=== PATIENT | female | born 1975 | race Caucasian/White ===

== ENCOUNTER 2017-01-25 14:42 | Outpatient (CLI) | payer MEDICAID ==
[2017-01-25 12:45] LABS: BASOPHILS # (AUTO) 0.1 10^3/uL (0.0-0.1); BASOPHILS % (AUTO) 0.8 %; EOSINOPHILS # (AUTO) 0.1 10^3/uL (0.0-0.7); EOSINOPHILS % (AUTO) 1.3 %; HCT - HEMATOCRIT 37.1 % (37.0-47.0); HGB - HEMOGLOBIN 12.5 g/dL (12.0-16.0); LYMPHOCYTES # (AUTO) 1.8 10^3/uL (1.5-3.5); LYMPHOCYTES % (AUTO) 27.2 %; MEAN CORPUSCULAR HEMOGLOBIN 30.3 pg (27.0-31.0); MEAN CORPUSCULAR HGB CONC 33.6 g/dL (32.0-36.0); MEAN CORPUSCULAR VOLUME 90.4 fL (81.0-99.0); MONOCYTES # (AUTO) 0.4 10^3/uL (0.0-1.0); MONOCYTES % (AUTO) 6.5 %; NEUTROPHILS # (AUTO) 4.3 10^3/uL (1.5-6.6); NEUTROPHILS % (AUTO) 64.2 %; RED CELL DISTRIBUTION WIDTH 13.1 % (12.0-15.0); UNCORRECTED WHITE BLOOD COUNT 6.7 x10^3/uL; WHITE BLOOD COUNT 6.7 x10^3/uL (4.8-10.8)
[2017-01-25 13:11] LABS: ALBUMIN/GLOBULIN RATIO 1.6 (1.0-2.2); BILIRUBIN,TOTAL 0.6 mg/dL (0.2-1.0); BUN - BLOOD UREA NITROGEN 8 mg/dL (6-20); CALCIUM 8.8 mg/dL (8.5-10.3); CARBON DIOXIDE - CO2 24 mmol/L (21-32); CHLORIDE 106 mmol/L (101-111); CHOL/HDL RATIO 2.7 (<4.4); CHOLESTEROL 226 mg/dL; CREATININE 0.6 mg/dL (0.4-1.0); GFR - MDRD 111 (>89); GLUCOSE 93 mg/dL (70-100); HDL CHOLESTEROL 84 mg/dL; LDL/HDL RATIO 1.5 (<4.4); POTASSIUM 3.7 mmol/L (3.5-5.0); SODIUM 137 mmol/L (135-145); TOTAL PROTEIN 6.6 g/dL (6.7-8.2); TRIGLYCERIDES 75 mg/dL; VLDL CHOLESTEROL 15 mg/dL
== END 2017-01-25 14:43 | disposition home or self-care (01) ==
LOC: LAB.N 14:42
PROVIDERS: ATTEND Nurse Practitioner Gerontology
DX: Z13.9 Encounter for screening, unspecified (principal)
CPT/HCPCS: 36415; 80050; 80061

== ENCOUNTER 2017-06-07 08:00 | Outpatient (CLI) | payer MEDICAID ==
[2017-06-07 18:48] LABS: BASOPHILS % (AUTO) 0.6 %; EOSINOPHILS # (AUTO) 0.1 10^3/uL (0.0-0.7); EOSINOPHILS % (AUTO) 1.7 %; LYMPHOCYTES # (AUTO) 2.5 10^3/uL (1.5-3.5); LYMPHOCYTES % (AUTO) 30.7 %; MEAN CORPUSCULAR HEMOGLOBIN 29.1 pg (27.0-31.0); MEAN CORPUSCULAR HGB CONC 32.5 g/dL (32.0-36.0); MEAN CORPUSCULAR VOLUME 89.4 fL (81.0-99.0); MEAN PLATELET VOLUME 9.1 fL (7.9-10.8); MONOCYTES # (AUTO) 0.5 10^3/uL (0.0-1.0); MONOCYTES % (AUTO) 6.4 %; NEUTROPHILS # (AUTO) 4.9 10^3/uL (1.5-6.6); NEUTROPHILS % (AUTO) 60.6 %; PLT - PLATELET COUNT 275 10^3/uL (130-450); RED BLOOD COUNT 4.14 10^6/uL (4.20-5.40); RED CELL DISTRIBUTION WIDTH 13.7 % (12.0-15.0); WHITE BLOOD COUNT 8.2 x10^3/uL (4.8-10.8)
[2017-06-07 19:13] LABS: ALBUMIN 4.1 g/dL (3.2-5.5); ALBUMIN/GLOBULIN RATIO 1.7 (1.0-2.2); BILIRUBIN,TOTAL 0.3 mg/dL (0.2-1.0); CALCIUM 8.6 mg/dL (8.5-10.3); CREATININE 0.7 mg/dL (0.4-1.0); TOTAL PROTEIN 6.5 g/dL (6.7-8.2)
== END 2017-06-07 08:01 | disposition home or self-care (01) ==
LOC: LAB.N 08:00
PROVIDERS: ATTEND Physician Assistant Medical
DX: R07.89 Other chest pain (principal); R10.11 Right upper quadrant pain
CPT/HCPCS: 36415; 80053; 83690; 85025

== ENCOUNTER 2017-06-07 14:00 | Outpatient (CLI) | payer MEDICAID | END 2017-06-07 14:15 | disposition home or self-care (01) | LOC: RT.N 14:00 | PROVIDERS: ATTEND Physician Assistant Medical | DX: R07.89 Other chest pain (principal); R10.11 Right upper quadrant pain | CPT/HCPCS: 36415; 80053; 83690; 85025; 93005 ==

== ENCOUNTER 2017-06-12 11:14 | Outpatient (CLI) | payer MEDICAID ==
--- NOTE | 2017-06-12 15:06 | Ultrasound Report ---
RIGHT UPPER QUADRANT ULTRASOUND: 06/12/2017 CLINICAL INDICATION: Abdominal pain. TECHNIQUE: Real-time scanning was performed with insurance account representative static images obtained. FINDINGS: The liver measures 12.3 cm. Hepatic echotexture is normal. No intrahepatic biliary dilatation or focal parenchymal lesion is present. The common bile duct measures 6 mm. The gallbladder demonstrates mobile calculi. No wall thickening or pericholecystic fluid is present. The right kidney measures 11.4 cm, and demonstrates no hydronephrosis. No free fluid is present. IMPRESSION: CHOLELITHIASIS, WITHOUT EVIDENCE OF ACUTE CHOLECYSTITIS OR BILIARY OBSTRUCTION. TD: 06/12/2017 15:05
== END 2017-06-12 11:15 | disposition home or self-care (01) ==
LOC: DI 11:14
PROVIDERS: ATTEND Physician Assistant Medical
DX: K80.20 Calculus of gallbladder without cholecystitis without obstruction (principal); R10.11 Right upper quadrant pain
CPT/HCPCS: 76705

== ENCOUNTER 2017-06-13 09:00 | Outpatient (CLI) | payer MEDICAID | END 2017-06-13 09:01 | disposition home or self-care (01) | LOC: LAB.R 09:00 | PROVIDERS: ATTEND Physician Assistant Medical | DX: R10.11 Right upper quadrant pain (principal) | CPT/HCPCS: 83013 ==

== ENCOUNTER 2017-11-27 13:49 | Outpatient (CLI) | payer MEDICAID ==
--- NOTE | 2017-11-28 05:02 | XRAY Report ---
Reason: PAIN IN L WRIST Procedure Date: 11/27/2017 Accession Number: [id number] / [id number] Procedure: XRN - Hand 3 View LT CPT Code: FULL RESULT: EXAMS: LEFT HAND AND WRIST RADIOGRAPHY EXAM DATE: 11/27/2017 02:11 PM. CLINICAL HISTORY: Pain in left wrist and hand. COMPARISON: HAND 3 VIEW LT 11/27/2017 2:07 PM. TECHNIQUE: 3 views each of hand and wrist. FINDINGS: Bones: Normal. No fractures or bone lesions in the hand or wrist. Joints: Normal. No subluxations in the hand or wrist. Soft Tissues: Normal. No soft tissue swelling. IMPRESSION: Negative left hand and wrist radiography. [facility]
--- NOTE | 2017-11-28 05:02 | XRAY Report ---
Reason: PAIN IN L WRIST Procedure Date: 11/27/2017 Accession Number: [id number] / [id number] Procedure: XRN - Wrist 3 View LT CPT Code: FULL RESULT: EXAMS: LEFT HAND AND WRIST RADIOGRAPHY EXAM DATE: 11/27/2017 02:11 PM. CLINICAL HISTORY: Pain in left wrist and hand. COMPARISON: HAND 3 VIEW LT 11/27/2017 2:07 PM. TECHNIQUE: 3 views each of hand and wrist. FINDINGS: Bones: Normal. No fractures or bone lesions in the hand or wrist. Joints: Normal. No subluxations in the hand or wrist. Soft Tissues: Normal. No soft tissue swelling. IMPRESSION: Negative left hand and wrist radiography. [facility]
== END 2017-11-27 13:50 | disposition home or self-care (01) ==
LOC: DI.N 13:49
PROVIDERS: ATTEND Nurse Practitioner Gerontology
DX: M25.532 Pain in left wrist (principal)

== ENCOUNTER 2020-02-10 09:18 | Outpatient (CLI) | payer OTHER ==
--- NOTE | 2020-02-10 14:46 | Ultrasound Report ---
PROCEDURE: Pelvic w/Transvaginal INDICATIONS: SEROUS CYSTADENOMA OF OVARY TECHNIQUE: Real-time scanning was performed of the pelvic organs, with image documentation. Additional endovagi nal scanning was necessary due to incomplete visualization of the adnexal and endometrial structures by transabdominal scanning. COMPARISON: MRI of the abdomen dated 02/19/2013 FINDINGS: Transabdominal scanning: Limited scanning through the kidneys shows no hydronephrosis. No pathologi c free abdominal or pelvic fluid. Endovaginal scanning: Uterus: Uterus is vertically oriented, slightly retroflexed, and slightly enlarged measuring 10.9 x 6.4 x 5.6 cm. The cervix contains a simple nabothian cyst. The endometrial thickness is indistinct bu t measures approximately 7 mm. Occasional punctate echogenic reflector is seen at the endometrial mar gin. No myometrial masses. Ovaries: The right ovary is surgically absent. No suspicious right adnexal mass. The left ovary romulo ures 5.3 x 3.7 x 4.4 cm for a volume of 44.7 cc. There is a dominant follicle measuring 2.7 cm. Other subcentimeter follicles are present. Trace amount of paraovarian fluid seen. IMPRESSION: 1. Mildly enlarged uterus containing an echogenic focus along the endometrial margin. This raises the possibility of adenomyosis. Clinical correlation recommended. 2. Post right oophorectomy without recurrent adnexal mass. 3. Physiologic appearing left ovary. Reviewed by: Sanaz Abdi MD on 02/10/2020 2:44 PM PST Approved by: Sanaz Abdi MD on 02/10/2020 2:44 PM PST Station ID: [id number]
== END 2020-02-10 09:19 | disposition home or self-care (01) ==
LOC: DI 09:18
PROVIDERS: ATTEND Obstetrics & Gynecology
DX: D27.9 Benign neoplasm of unspecified ovary (principal); Z90.721 Acquired absence of ovaries, unilateral

== ENCOUNTER 2020-02-10 09:58 | Outpatient (CLI) | payer OTHER ==
[2020-02-10 10:27] LABS: BASOPHILS # (AUTO) 0.1 10^3/uL (0.0-0.1); BASOPHILS % (AUTO) 0.7 %; EOSINOPHILS # (AUTO) 0.1 10^3/uL (0.0-0.7); EOSINOPHILS % (AUTO) 1.6 %; HGB - HEMOGLOBIN 12.8 g/dL (12.0-16.0); LYMPHOCYTES # (AUTO) 2.1 10^3/uL (1.5-3.5); LYMPHOCYTES % (AUTO) 29.3 %; MEAN CORPUSCULAR HEMOGLOBIN 30.7 pg (27.0-31.0); MEAN PLATELET VOLUME 9.9 fL (7.9-10.8); MONOCYTES # (AUTO) 0.4 10^3/uL (0.0-1.0); MONOCYTES % (AUTO) 5.9 %; NEUTROPHILS # (AUTO) 4.4 10^3/uL (1.5-6.6); NEUTROPHILS % (AUTO) 62.2 %; PLT - PLATELET COUNT 306 10^3/uL (130-450); RED BLOOD COUNT 4.17 10^6/uL (4.20-5.40); RED CELL DISTRIBUTION WIDTH 12.3 % (12.0-15.0); WHITE BLOOD COUNT 7.1 x10^3/uL (4.8-10.8)
[2020-02-10 10:40] LABS: ALBUMIN 4.2 g/dL (3.2-5.5); ALBUMIN/GLOBULIN RATIO 1.6 (1.0-2.2); BILIRUBIN,TOTAL 0.6 mg/dL (0.2-1.0); CALCIUM 8.7 mg/dL (8.5-10.3); CREATININE 0.6 mg/dL (0.4-1.0); TOTAL PROTEIN 6.8 g/dL (6.7-8.2)
== END 2020-02-10 09:59 | disposition home or self-care (01) ==
LOC: LAB 09:58
PROVIDERS: ATTEND Family Medicine
DX: Z00.00 Encounter for general adult medical examination without abnormal findings (principal); D12.6 Benign neoplasm of colon, unspecified; K80.20 Calculus of gallbladder without cholecystitis without obstruction; D36.7 Benign neoplasm of other specified sites
CPT/HCPCS: 36415; 80053; 84153; 84443; 85025